=== PATIENT | male | born 1945 | race Caucasian/White ===

== ENCOUNTER 2017-12-09 07:38 | Inpatient (IN) | payer MEDICARE, OTHER ==
[2017-12-09 08:06] LABS: WHITE BLOOD COUNT 10.7 10^3/ul (4.8-10.8)
[2017-12-09 08:06] LABS: ADD MAN DIFF? NO; BASOPHILS % 0.3 % (0.0-2.0); EOSINOPHILS # 0.2 10^3/ul (0.0-0.5); EOSINOPHILS % 1.4 % (0.0-7.0); HEMATOCRIT 45.6 % (42.0-52.0); HEMOGLOBIN 15.1 g/dl (14.0-18.0); LYMPHOCYTES % 18.6 % (15.0-51.0); MEAN CORPUSCULAR HEMOGLOBIN 28.8 pg (29.0-33.0); MEAN CORPUSCULAR HGB CONC 33.1 g/dl (32.0-37.0); MEAN PLATELET VOLUME 10.1 fl (7.4-10.4); MONOCYTE # 0.7 10^3/ul (0.3-0.9); MONOCYTES % 6.8 % (0.0-11.0); NEUTROPHIL # 7.7 10^3/ul (1.6-7.5); NEUTROPHILS % 72.1 % (39.0-77.0); PLATELET COUNT 250 10^3/UL (140-415); RED BLOOD COUNT 5.24 10^6/ul (4.70-6.10); RED CELL DISTRIBUTION WIDTH 14.5 % (11.5-14.5)
[2017-12-09] MEDS: ONDANSETRON 4 MG INJ IV (08:06)
[2017-12-09] MEDS: morphine 2 MG INJ IV (08:06)
[2017-12-09] MEDS: ASPIRIN 325 MG TAB PO (08:06)
[2017-12-09 08:25] LABS: PROTIME 13.3 Sec (11.9-14.9)
[2017-12-09 08:26] LABS: PARTIAL THROMBOPLASTIN TIME 31.5 Sec (25.0-35.0)
[2017-12-09 08:27] LABS: ALANINE AMINOTRANSFERASE 36 IU/L (13-69); ALBUMIN 4.6 g/dl (3.3-4.9); ALBUMIN/GLOBULIN RATIO 1.31; ALKALINE PHOSPHATASE 60 IU/L (42-121); ANION GAP 16 (8-16); ASPARTATE AMINO TRANSFERASE 123 IU/L (15-46); BILIRUBIN,INDIRECT 0.8 mg/dl (0-1.1); BILIRUBIN,TOTAL 0.8 mg/dl (0.2-1.3); BLOOD UREA NITROGEN 23 mg/dl (7-20); CALCIUM 9.6 mg/dl (8.4-10.2); CARBON DIOXIDE 24 mmol/L (21-31); CHLORIDE 103 mmol/L (97-110); CREATINE KINASE 716 IU/L (23-200); GLUCOSE 165 mg/dl (70-220); POTASSIUM 4.5 mmol/L (3.5-5.1); SODIUM 138 mmol/L (135-144); TOTAL PROTEIN 8.1 g/dl (6.1-8.1)
[2017-12-09 08:37] LABS: B-TYPE NATRIURETIC PEPTIDE 1620 PG/ML (0-125); CK INDEX 9.6
[2017-12-09] MEDS: SOD CHLORIDE 0.9% 1,000 ML IV ×4 (09:15→23:03)
[2017-12-09] MEDS: HEPARIN 5,000 UNIT/0.5 ML VIAL IV (09:16)
[2017-12-09] MEDS ORDERED: NITROGLYCERIN (IC) 100 MCG/ML INJ ×2 (10:16→10:49)
[2017-12-09] MEDS ORDERED: MIDAZOLAM 1 MG/ML 2 ML INJ (10:16)
[2017-12-09] MEDS ORDERED: IODIXANOL LOCM 100 ML BTL ×2 (10:16→11:11)
[2017-12-09] MEDS ORDERED: VERAPAMIL 5 MG INJ (10:16)
[2017-12-09] MEDS ORDERED: LIDOCAINE 1% (MDV) 20 ML INJ (10:16)
[2017-12-09] MEDS ORDERED: HEPARIN 1000 UNITS/ML 10 ML INJ (10:16)
[2017-12-09] MEDS ORDERED: FENTAnyl 50 MCG/ML VIAL (10:16)
[2017-12-09] MEDS ORDERED: HYDROCODONE/APAP (5/325) TAB PO ×2 (10:30)
[2017-12-09] MEDS ORDERED: ACETAMINOPHEN 325 MG TAB PO ×2 (10:30→12:30)
[2017-12-09] MEDS ORDERED: NACL 0.9% 3 ML SYG IV (10:30)
[2017-12-09] MEDS ORDERED: ONDANSETRON 4 MG INJ IV ×3 (10:30→12:30)
[2017-12-09] MEDS ORDERED: GLUCOSE GEL 15 GRAM TUBE PO ×2 (11:00)
[2017-12-09] MEDS ORDERED: GLUCOSE GEL 15 GRAM TUBE BUCCAL (11:00)
[2017-12-09] MEDS ORDERED: GLUCAGON 1 MG INJ IM (11:00)
[2017-12-09] MEDS ORDERED: DEXTROSE 50% 50 ML SYRINGE IV ×2 (11:00)
[2017-12-09] MEDS ORDERED: BIVALIRUDIN 250MG /NS 50 ML 50 ML IVPB (11:13)
[2017-12-09] MEDS ORDERED: CLOPIDOGREL 300 MG TAB (12:01)
[2017-12-09] MEDS ORDERED: TICAGRELOR 90 MG TABLET (12:03)
[2017-12-09] MEDS ORDERED: ZOLPIDEM 5 MG TAB PO (12:30)
[2017-12-09] MEDS ORDERED: AL HYDROX/MG HYDROX/SIMETH 30 ML CUP PO ×2 (12:30)
[2017-12-09] MEDS ORDERED: OXYCODONE/ACETAMINOPHEN (5/325) TAB PO (12:30)
[2017-12-09] MEDS ORDERED: morphine 2 MG INJ IV ×2 (12:30)
[2017-12-09] MEDS: INSULIN ASPART [NOVOLOG] 3 ML PEN SC ×3 (13:40→21:00)
[2017-12-09] MEDS: INSULIN GLARGINE [LANTus] (100 UNITS/ML) SYG SC (20:11)
[2017-12-09] MEDS: ATORVASTATIN 80 MG TAB PO (22:16)
[2017-12-09] MEDS: TICAGRELOR 90 MG TABLET PO (22:16)
[2017-12-09] MEDS: CILOSTAZOL 100 MG TAB PO (22:16)
[2017-12-09] MEDS: FAMOTIDINE 20 MG TAB PO (22:16)
[2017-12-10] MEDS: ACCU-CHEK XX (02:00)
[2017-12-10 05:27] LABS: ADD MAN DIFF? NO
[2017-12-10 05:31] LABS: BASOPHILS % 0.3 % (0.0-2.0); EOSINOPHILS # 0.2 10^3/ul (0.0-0.5); EOSINOPHILS % 2.1 % (0.0-7.0); HEMATOCRIT 36.8 % (42.0-52.0); HEMOGLOBIN 12.4 g/dl (14.0-18.0); IMMATURE GRANS #M 0.08 10^3/ul; IMMATURE GRANS % (M) 0.9 %; LYMPHOCYTES # 1.7 10^3/ul (0.8-2.9); MEAN CORPUSCULAR HEMOGLOBIN 29.3 pg (29.0-33.0); MEAN CORPUSCULAR HGB CONC 33.7 g/dl (32.0-37.0); MEAN PLATELET VOLUME 10.6 fl (7.4-10.4); MONOCYTE # 0.9 10^3/ul (0.3-0.9); NEUTROPHIL # 6.3 10^3/ul (1.6-7.5); NEUTROPHILS % 68.7 % (39.0-77.0); PLATELET COUNT 192 10^3/UL (140-415); RED BLOOD COUNT 4.23 10^6/ul (4.70-6.10); RED CELL DISTRIBUTION WIDTH 14.5 % (11.5-14.5)
[2017-12-10 05:31] LABS: WHITE BLOOD COUNT 9.2 10^3/ul (4.8-10.8)
[2017-12-10 05:44] LABS: HEMOGLOBIN A1C 6.7 % (0-5.9)
[2017-12-10 06:01] LABS: ALANINE AMINOTRANSFERASE 38 IU/L (13-69); ALBUMIN 3.4 g/dl (3.3-4.9); ALKALINE PHOSPHATASE 48 IU/L (42-121); ANION GAP 11 (8-16); ASPARTATE AMINO TRANSFERASE 125 IU/L (15-46); BILIRUBIN,INDIRECT 1.1 mg/dl (0-1.1); BILIRUBIN,TOTAL 1.1 mg/dl (0.2-1.3); BLOOD UREA NITROGEN 20 mg/dl (7-20); CALCIUM 8.8 mg/dl (8.4-10.2); CARBON DIOXIDE 24 mmol/L (21-31); CHLORIDE 108 mmol/L (97-110); CREATININE 1.32 mg/dl (0.61-1.24); GLUCOSE 101 mg/dl (70-220); MAGNESIUM 1.8 mg/dl (1.7-2.5); PHOSPHORUS 3.8 mg/dl (2.5-4.9); POTASSIUM 4.3 mmol/L (3.5-5.1); SODIUM 139 mmol/L (135-144)
[2017-12-10 06:04] LABS: CHOL/HDL RATIO 8.2 RATIO; CREATINE KINASE 748 IU/L (23-200); HDL CHOLESTEROL 25 mg/dl (31-75); LDL CHOLESTEROL,CALCULATED 159 mg/dl; TRIGLYCERIDES 117 mg/dl (0-149)
[2017-12-10 06:04] LABS: CHOLESTEROL 207 mg/dl (100-200)
[2017-12-10 06:22] LABS: THYROID STIMULATING HORMONE 0.664 MIU/L (0.465-4.680)
[2017-12-10] MEDS: INSULIN ASPART [NOVOLOG] 3 ML PEN SC ×4 (07:35→20:50)
[2017-12-10] MEDS: CILOSTAZOL 100 MG TAB PO ×2 (08:07→20:39)
[2017-12-10] MEDS: ASPIRIN (EC) 81 MG TAB PO (08:07)
[2017-12-10] MEDS: TICAGRELOR 90 MG TABLET PO ×2 (08:09→20:50)
[2017-12-10] MEDS ORDERED: CLOPIDOGREL 75 MG TAB PO (09:00)
[2017-12-10] MEDS: DOCUSATE SODIUM 100 MG CAP PO (20:39)
[2017-12-10] MEDS: ATORVASTATIN 80 MG TAB PO (20:41)
[2017-12-10] MEDS: FAMOTIDINE 20 MG TAB PO (20:41)
[2017-12-10] MEDS: INSULIN GLARGINE [LANTus] (100 UNITS/ML) SYG SC (20:49)
[2017-12-10] MEDS: ACETAMINOPHEN 325 MG TAB PO (23:44)
[2017-12-11] MEDS: ACCU-CHEK XX (02:00)
[2017-12-11 07:11] LABS: ADD MAN DIFF? NO
[2017-12-11 07:16] LABS: WHITE BLOOD COUNT 10.5 10^3/ul (4.8-10.8)
[2017-12-11 07:16] LABS: BASOPHILS % 0.3 % (0.0-2.0); EOSINOPHILS # 0.4 10^3/ul (0.0-0.5); EOSINOPHILS % 3.5 % (0.0-7.0); HEMATOCRIT 39.3 % (42.0-52.0); HEMOGLOBIN 13.4 g/dl (14.0-18.0); IMMATURE GRANS #M 0.06 10^3/ul; IMMATURE GRANS % (M) 0.6 %; LYMPHOCYTES # 1.7 10^3/ul (0.8-2.9); LYMPHOCYTES % 16.3 % (15.0-51.0); MEAN CORPUSCULAR HEMOGLOBIN 30.2 pg (29.0-33.0); MEAN CORPUSCULAR HGB CONC 34.1 g/dl (32.0-37.0); MEAN CORPUSCULAR VOLUME 88.7 fl (82.0-101.0); MEAN PLATELET VOLUME 10.7 fl (7.4-10.4); MONOCYTES % 9.8 % (0.0-11.0); NEUTROPHIL # 7.3 10^3/ul (1.6-7.5); NEUTROPHILS % 69.5 % (39.0-77.0); PLATELET COUNT 203 10^3/UL (140-415); RED BLOOD COUNT 4.43 10^6/ul (4.70-6.10); RED CELL DISTRIBUTION WIDTH 14.2 % (11.5-14.5)
[2017-12-11 07:38] LABS: ANION GAP 14 (8-16); BLOOD UREA NITROGEN 17 mg/dl (7-20); CALCIUM 9.3 mg/dl (8.4-10.2); CARBON DIOXIDE 25 mmol/L (21-31); CHLORIDE 106 mmol/L (97-110); CREATININE 1.16 mg/dl (0.61-1.24); GLUCOSE 121 mg/dl (70-220); MAGNESIUM 1.9 mg/dl (1.7-2.5); POTASSIUM 4.4 mmol/L (3.5-5.1); SODIUM 141 mmol/L (135-144)
[2017-12-11] MEDS: INSULIN ASPART [NOVOLOG] 3 ML PEN SC (07:55)
[2017-12-11] MEDS: CILOSTAZOL 100 MG TAB PO (08:09)
[2017-12-11] MEDS: ASPIRIN (EC) 81 MG TAB PO (08:10)
[2017-12-11] MEDS: TICAGRELOR 90 MG TABLET PO (08:11)
[2017-12-11] MEDS: ACETAMINOPHEN 325 MG TAB PO (10:54)
== END 2017-12-11 11:00 | disposition home or self-care (01) | DRG 246 ==
LOC: TEL 12-10 16:16 → E/R 07:38 → CCL 10:04 → ICU 12:30 → CCL 12:30 → ICU 12:05
PROC: 027135Z Dilation of Coronary Artery, Two Arteries with Two Drug-eluting Intraluminal Devices, Percutaneous Approach (ICD-10-PCS; principal; 2017-12-09 10:13)
PROC: 4A023N7 Measurement of Cardiac Sampling and Pressure, Left Heart, Percutaneous Approach (ICD-10-PCS; 2017-12-09 10:13)
PROC: B211YZZ Fluoroscopy of Multiple Coronary Arteries using Other Contrast (ICD-10-PCS; 2017-12-09 10:13)
DX: T82.855A Stenosis of coronary artery stent, initial encounter (principal); I21.4 Non-ST elevation (NSTEMI) myocardial infarction; N17.9 Acute kidney failure, unspecified; I25.110 Atherosclerotic heart disease of native coronary artery with unstable angina pectoris; I10 Essential (primary) hypertension; E11.51 Type 2 diabetes mellitus with diabetic peripheral angiopathy without gangrene; E78.5 Hyperlipidemia, unspecified; I95.81 Postprocedural hypotension; R00.1 Bradycardia, unspecified; Y83.8 Other surgical procedures as the cause of abnormal reaction of the patient, or of later complication, without mention of misadventure at the time of the procedure; Y92.89 Other specified places as the place of occurrence of the external cause; Z95.5 Presence of coronary angioplasty implant and graft
CPT/HCPCS: 36415; 71045; 80048; 80053; 80061; 82550; 82553; 82962; 83036; 83735; 83880; 84100; 84443; 84484; 85025; 85610; 85730; 87081; 93005; 93458; 96374; 96375; 99291-25

== ENCOUNTER 2018-05-22 08:43 | Emergency (ER) | payer MEDICARE, OTHER ==
[2018-05-22] MEDS: DIPHENHYDRAMINE 50 MG CAP PO (09:39)
[2018-05-22] MEDS: predniSONE 20 MG TAB PO (09:40)
== END 2018-05-22 09:50 | disposition home or self-care (01) ==
LOC: FTE 08:43
DX: L25.9 Unspecified contact dermatitis, unspecified cause (principal); R40.2412 Glasgow coma scale score 13-15, at arrival to emergency department; I10 Essential (primary) hypertension; I25.10 Atherosclerotic heart disease of native coronary artery without angina pectoris; F17.210 Nicotine dependence, cigarettes, uncomplicated; Z98.61 Coronary angioplasty status; Z79.82 Long term (current) use of aspirin
CPT/HCPCS: 99283

== ENCOUNTER 2018-10-13 15:34 | Emergency (ER) | payer MEDICARE, OTHER ==
[2018-10-13 16:42] LABS: ADD UMIC YES; UR ASCORBIC ACID NEGATIVE (NEGATIVE); UR BACTERIA FEW /HPF (NONE SEEN); UR BILIRUBIN (Dip) NEGATIVE (NEGATIVE); UR BLOOD (Dip) 1+ mg/dL (NEGATIVE); UR CLARITY CLEAR (CLEAR); UR COLOR YELLOW (YELLOW); UR GLUCOSE (Dip) NEGATIVE (NEGATIVE); UR KETONES (Dip) NEGATIVE (NEGATIVE); UR LEUKOCYTE ESTERASE (Dip) 1+ Leu/ul (NEGATIVE); UR NITRITE (Dip) NEGATIVE (NEGATIVE); UR RBC 2 /HPF (0-5); UR SPECIFIC GRAVITY (Dip) 1.006 (1.003-1.030); UR TOTAL PROTEIN (Dip) NEGATIVE (NEGATIVE); UR UROBILINOGEN (Dip) 1+ mg/dL (NEGATIVE); UR WBC 23 /HPF (0-5)
== END 2018-10-13 17:28 | disposition home or self-care (01) ==
LOC: FTE 15:34
DX: S59.911A Unspecified injury of right forearm, initial encounter (principal); S29.9XXA Unspecified injury of thorax, initial encounter; Y04.2XXA Assault by strike against or bumped into by another person, initial encounter
CPT/HCPCS: 81001; 87086; 99284-25